=== PATIENT | male | born 1935 | race Caucasian/White ===

== ENCOUNTER → 2018-11-28 | Outpatient (CLI) | payer MEDICARE, OTHER ==
[~2018-11-28] MED LIST: AREDS 2 PO; BISA-42 PO; FLUT16SP NS; HYDR-3164 PO; ISOS30TA4 PO; LORA10CA PO; METF500T16 PO; MULT-659 PO; NAPR-695 PO; PRAV40TA2 PO; SENN1TAB70 PO; SIME80TA43 PO
[2018-11-28 13:32] LABS: BASO # 0.1 x10^3/uL (0.0-0.2); BASO % 1 % (0-3); EOS # 0.2 x10^3/uL (0.0-0.7); EOS % 2 % (0-3); HEMATOCRIT 40.8 % (39.0-53.0); HEMOGLOBIN 13.8 g/dL (13.0-17.5); LYMPH # 2.6 x10^3/uL (1.0-4.8); LYMPH % 34 % (24-48); MEAN CORPUSCULAR HEMOGLOBIN 33 pg (25-35); MEAN CORPUSCULAR HGB CONC 34 g/dL (31-37); MEAN CORPUSCULAR VOLUME 98 fL (79-100); MONO # 0.7 x10^3/uL (0.0-1.1); MONO % 9 % (0-9); NEUT # 4.1 x10^3uL (1.8-7.7); NEUT % 53 % (31-73); PLATELET COUNT 257 x10^3/uL (140-400); RED BLOOD COUNT 4.18 x10^6/uL (4.30-5.70); RED CELL DISTRIBUTION WIDTH 12.7 % (11.5-14.5); WHITE BLOOD COUNT 7.7 x10^3/uL (4.0-11.0)
--- NOTE | 2018-11-28 13:34 | EKG ---
[facility] [address] [place] [address] Test Date: 2018-11-28 Test Time: 13:36:21 Pat Name: QUINTEN MEHTA Department: Room: Gender: M Quality Tester: MR KAURB: 1935 Requested By: BRITTNEY DEAN Order Number: [id number] Reading MD: Isiah Sutherland Measurements Intervals [place] Rate: 74 P: 53 LA: 172 QRS: 0 QRSD: 80 T: 62 QT: 366 QTc: 411 Interpretive Statements SINUS RHYTHM LEFTWARD AXIS QRS(T) CONTOUR ABNORMALITY CONSIDER ANTEROSEPTAL MYOCARDIAL DAMAGE POSSIBLY ABNORMAL ECG RI6.01 No previous ECG available for comparison Electronically Signed On 12-01-2018 12:16:18 CDT by Isiah Sutherland
[2018-11-28 13:37] LABS: ALBUMIN 3.7 g/dL (3.4-5.0); CALCIUM 9.3 mg/dL (8.5-10.1); CREATININE 0.9 mg/dL (0.7-1.3); POTASSIUM 4.4 mmol/L (3.5-5.1)
--- NOTE | 2018-11-28 14:21 | RAD ---
Chest, PA and Lateral: Technique: PA and lateral views of the chest were obtained. History: Preop. Comparison: None. Findings: The aorta appears tortuous. The heart size grossly appears unremarkable. Mild prominent bilateral interstitial lung markings likely chronic interstitial changes. There is no acute infiltrate or visualized pneumothorax. IMPRESSION: No acute cardiopulmonary findings. Electronically signed by: Jc Fitzpatrick MD (11/28/2018 2:18 PM) [place] [id number]
--- NOTE | 2018-12-01 09:43 | NUR ---
FAXED PRE - OP TEST REPORTS TO 'S OFFICE FOR REVIEW AND RECEIVED TRANSMITTAL CONFIRMATION.
--- NOTE | 2018-12-02 18:41 | NUR ---
EKG'S PRELIMINARY AND FINAL REPORT REVIEWED BY DECLAN NARAYANAN RN, ANESTHESIA TEAM AT 1240 12/02/2018 AND WAS OKAY.
== END | disposition home or self-care (01) ==
LOC: SURGPAT 12:52
PROVIDERS: ATTEND Surgery
DX: Z01.818 Encounter for other preprocedural examination (principal); K40.90 Unilateral inguinal hernia, without obstruction or gangrene, not specified as recurrent
CPT/HCPCS: 36415; 71046; 80048; 82040; 85025; 93005